=== PATIENT | female | born 1980 | race African-American/Black ===

== ENCOUNTER 2024-01-15 20:19 | Emergency (ER) | payer BC ==
[2024-01-15] MEDS ORDERED: Cyclobenzaprine 10 MG TAB ONE (20:52)
[2024-01-15] MEDS ORDERED: Ibuprofen 800 MG TAB ONE (20:52)
== END 2024-01-15 21:00 | disposition home or self-care (01) ==
LOC: BURERS 20:19
DX: M77.8 Other enthesopathies, not elsewhere classified (principal); I10 Essential (primary) hypertension; E78.5 Hyperlipidemia, unspecified
CPT/HCPCS: 99283